=== PATIENT | female | born 1940 | race Caucasian/White ===

== ENCOUNTER 2018-04-02 12:55 | Outpatient (CLI) | payer MEDICARE, BC ==
--- NOTE | 2018-04-02 14:53 | XRAY Report ---
Procedure Date: 04/02/2018 Accession Number: [id number] / [id number] Procedure: XR - Chest 2 View X-Ray CPT Code: 17988 FULL RESULT: EXAM: CHEST RADIOGRAPHY EXAM DATE: 04/02/2018 02:13 PM. CLINICAL HISTORY: COUGH,GERD. COMPARISON: 09/12/2006. TECHNIQUE: 2 views. FINDINGS: Lungs/Pleura: No focal opacities evident. No pleural effusion. No pneumothorax. Normal volumes. Mediastinum: Heart size upper normal and unchanged. There is mild tortuosity in the descending thoracic aorta, unchanged. Other: Pedicle screws and longitudinal stabilization rods in the lumbar spine, incompletely visualized. No gaseous distention of the stomach. IMPRESSION: 1. Lungs are clear. 2. Size upper normal and unchanged. 3. Mild descending thoracic aortic tortuosity, unchanged. RADIA
== END 2018-04-02 12:56 | disposition home or self-care (01) ==
LOC: DI 12:55
PROVIDERS: ATTEND Registered Nurse
DX: R05 Cough (principal); K21.9 Gastro-esophageal reflux disease without esophagitis
CPT/HCPCS: 71046

== ENCOUNTER 2019-04-28 15:41 | Emergency (ER) | payer MEDICARE, BC ==
--- NOTE | 2019-04-28 18:04 | XRAY Report ---
Reason: hip pain after fall Procedure Date: 04/28/2019 Accession Number: [id number] / [id number] Procedure: XR - Hip w/Pelvis 2-3V LT CPT Code: FULL RESULT: EXAM: LEFT HIP RADIOGRAPHY EXAM DATE: 04/28/2019 05:09 PM. CLINICAL HISTORY: Hip pain after fall. COMPARISON: None. TECHNIQUE: 2 views. FINDINGS: Left total hip arthroplasty appears in anatomic alignment. No evidence for loosening. No dislocation. No evidence for acute fracture. Lumbosacral hardware. There appears to be right-sided pelvic calcification, could represent uterine fibroid calcification. Correlate clinically. IMPRESSION: 1. No acute findings are seen. See chronic findings as above. RADIA
--- NOTE | 2019-04-28 18:07 | ED Physician Documentation ---
PD HPI LOWER EXT INJURY - Stated complaint Stated Complaint: L HIP PAIN - Chief complaint Chief Complaint: Trauma Ch/Bk - History obtained from History obtained from: Patient, Family - History of Present Illness PD HPI LOW EXT INJURY LOCATION: Left, Hip Type of injury: Fall Where injury occurred: Home Timing - onset: Yesterday Timing - duration: Days (1) Timing - details: Abrupt onset, Still present Improved by: Rest, Ice, Immobilization Worsened by: Moving, Palpating Associated symptoms: No: Weakness, Numbness, Tingling, Swelling Contributing factors: Prior ortho surgery, Prosthetic joint. No: Anticoagulated Similar symptoms before: Has not had sx before Recently seen: Not recently seen - Additional information Additional information: Previously well 78-year-old female is visiting up in [place] yesterday when she walked quite a plant with her personal purse got caught on the plane and tripped her up. She fell onto her left side landing on her left hip. She is had this hip replaced previously with the prosthetic and she did not feel that her hip was broken she was able to bear some weight on this but has pain in the pelvis and groin associated with this. She was able to drive herself back from [place] today and she is come to the emergency department with a concern that she may have a fracture of the pelvic ring. She was not able to sleep last night secondary to pain. Review of Systems Constitutional: denies: Fever Respiratory: denies: Cough GI: denies: Vomiting PD PAST MEDICAL HISTORY - Present Medications Home Medications: Ambulatory Orders Medication Instructions Recorded Confirmed Carvedilol 6.25 mg PO BID 04/28/19 04/28/19 Celecoxib [CeleBREX] 100 mg PO DAILY 04/28/19 04/28/19 Hydrocodone/Acetaminophen 1 - 2 each PO Q6H PRN #14 tablet 04/28/19 [Hydrocodon-Acetaminophen 5-325] - Allergies Allergies/Adverse Reactions: Allergies Allergy/AdvReac Type Severity Reaction Status Date / Time No Known Drug Allergies Allergy Verified 04/28/19 16:46 PD ED PE NORMAL - Vitals Vital signs reviewed: Yes (hypertensive ) - General General: No acute distress, Well developed/nourished - HEENT HEENT: Atraumatic, PERRL, EOMI - Respiratory Respiratory: No respiratory distress - Derm Derm: Normal color, Warm and dry, No rash - Extremities Extremities: No deformity, No edema, Other (There is mild point tenderness to the superior pelvic brim on the left side. The hip is without tenderness to the trochanter and there is normal ROM to the hip joint. The distal n/v is intact. 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 No acute findings are seen. See chronic findings as above.), EMP read indepedently, See rad report PD MEDICAL DECISION MAKING - ED course Complexity details: considered differential, d/w patient, d/w family ED course: 78-year-old female with a fall onto her left side has pain into the pelvic girdle and she is able to bear weight. There is no obvious fracture on plain film evaluation. We will provide her with some pain medication for short term use. Departure - Departure Disposition: 01 Home, Self Care Clinical Impression: Contusion of left hip Qualifiers: Encounter type: initial encounter Qualified Code(s): S70.02XA - Contusion of left hip, initial encounter Condition: Stable Instructions: ED Contusion Hip Follow-Up: Dasha Moyer, HEAD BOOKKEEPER [Primary Care Provider] - Prescriptions: Hydrocodone/Acetaminophen [Hydrocodon-Acetaminophen 5-325] 1 - 2 each PO Q6H PRN #14 tablet PRN Reason: pain
[2019-04-28 18:25] VITALS: BP 165/77
== END 2019-04-28 18:24 | disposition home or self-care (01) ==
LOC: ED 15:41
DX: S70.02XA Contusion of left hip, initial encounter (principal); R10.2 Pelvic and perineal pain; W01.0XXA Fall on same level from slipping, tripping and stumbling without subsequent striking against object, initial encounter; Y93.01 Activity, walking, marching and hiking; Z96.642 Presence of left artificial hip joint
CPT/HCPCS: 99283; 99284

== ENCOUNTER 2019-09-09 14:10 | Outpatient (CLI) | payer MEDICARE, BC ==
--- NOTE | 2019-09-10 08:26 | XRAY Report ---
Reason: COUGH, DYSPHAGIA Procedure Date: 09/09/2019 Accession Number: [id number] / [id number] Procedure: XR - Chest 2 View X-Ray CPT Code: 34957 Final Report FULL RESULT: EXAM: CHEST RADIOGRAPHY 2 VIEWS EXAM DATE: 09/09/2019. CLINICAL HISTORY: Calm. Dysphagia. COMPARISON: PA and lateral chest on 04/02/2018. TECHNIQUE: PA and lateral views. FINDINGS: Lungs/Pleura: Normal vasculature. The lungs are clear. No pleural fluid or pneumothorax. Mediastinum: Heart size is normal. Aortic tortuosity and atherosclerosis are unchanged. Otherwise normal mediastinal contours. Bones: Degenerative changes of the spine. Partially visualized is a lumbar fusion. IMPRESSION: Chronic findings are unchanged from 03/23/2018. No acute abnormality. RADIA
== END 2019-09-09 14:11 | disposition home or self-care (01) ==
LOC: DI 14:10
PROVIDERS: ATTEND Nurse Practitioner Family
DX: R05 Cough (principal); R13.10 Dysphagia, unspecified
CPT/HCPCS: 71046

== ENCOUNTER 2019-09-22 12:16 | Outpatient (CLI) | payer MEDICARE, BC ==
--- NOTE | 2019-09-22 14:46 | XRAY Report ---
Reason: COUGH, DYSPHAGIA Procedure Date: 09/22/2019 Accession Number: [id number] / [id number] Procedure: FL - Modified Barium Swallow W/SP CPT Code: Final Report FULL RESULT: EXAM: MODIFIED BARIUM SWALLOW EXAM DATE: 09/22/2019 12:48 PM. CLINICAL HISTORY: COUGH, DYSPHAGIA. COMPARISON: None. TECHNIQUE: Under the direction of speech pathology, patient swallowed various consistencies of barium under lateral fluoroscopic observation of the neck. Fluoroscopy Time: 1 minute 11 seconds. Number of Images: 114. FINDINGS: Swallowing Mechanism: Normal oral phase and swallowing reflex. Airway Protection: Normal epiglottic motion. No episodes of tracheal penetration or aspiration with all consistencies of barium. Pharynx: No significant vallecular or piriform sinus contrast pooling. Other: A cricopharyngeal bar is present without obstruction. IMPRESSION: 1. No aspiration identified. 2. Nonobstructing cricopharyngeal bar. RADIA
== END 2019-09-22 12:17 | disposition home or self-care (01) ==
LOC: DI 12:16
PROVIDERS: ATTEND Nurse Practitioner Family
DX: R05 Cough (principal); R13.10 Dysphagia, unspecified
CPT/HCPCS: 74230

== ENCOUNTER 2019-10-10 09:49 | Emergency (ER) | payer MEDICARE, BC ==
[2019-10-10 10:25] LABS: BILIRUBIN,URINE NEGATIVE (NEGATIVE); CLARITY,URINE CLEAR (CLEAR); GLUCOSE, URINE (UA) NEGATIVE (NEGATIVE); KETONES,URINE (UA) 15 mg/dL (NEGATIVE); LEUKOCYTE ESTERASE, URINE NEGATIVE (NEGATIVE); NITRITE,URINE NEGATIVE (NEGATIVE); OCCULT BLOOD,URINE TRACE-INTA (NEGATIVE); PROTEIN,URINE 30 mg/dL (NEGATIVE); UROBILINOGEN,URINE 1 (NORMAL) E.U./dL (NORMAL)
[2019-10-10 10:36] LABS: RBC,URINE 0-5 /HPF (0-5); SQUAMOUS EPITHELIAL CELL,UR FEW Squamous (<= Few); WBC CLUMPS,URINE PRESENT
[2019-10-10 10:37] LABS: BACTERIA,URINE Rare /HPF (None Seen)
[2019-10-10 10:47] LABS: BASOPHILS % (AUTO) 0.6 %; EOSINOPHILS # (AUTO) 0.1 10^3/uL (0.0-0.7); EOSINOPHILS % (AUTO) 1.5 %; HGB - HEMOGLOBIN 11.6 g/dL (12.0-16.0); LYMPHOCYTES % (AUTO) 14.5 %; MEAN CORPUSCULAR HEMOGLOBIN 29.4 pg (27.0-31.0); MEAN CORPUSCULAR VOLUME 89.1 fL (81.0-99.0); MEAN PLATELET VOLUME 9.4 fL (7.9-10.8); MONOCYTES # (AUTO) 0.8 10^3/uL (0.0-1.0); MONOCYTES % (AUTO) 11.5 %; NEUTROPHILS # (AUTO) 5.2 10^3/uL (1.5-6.6); NEUTROPHILS % (AUTO) 71.6 %; PLT - PLATELET COUNT 186 10^3/uL (130-450); RED BLOOD COUNT 3.95 10^6/uL (4.20-5.40); RED CELL DISTRIBUTION WIDTH 14.6 % (12.0-15.0); WHITE BLOOD COUNT 7.2 x10^3/uL (4.8-10.8)
[2019-10-10 10:59] LABS: ALBUMIN 3.5 g/dL (3.2-5.5); ALBUMIN/GLOBULIN RATIO 0.9 (1.0-2.2); BILIRUBIN,TOTAL 0.6 mg/dL (0.2-1.0); CALCIUM 8.7 mg/dL (8.5-10.3); CREATININE 0.9 mg/dL (0.4-1.0); TOTAL PROTEIN 7.3 g/dL (6.7-8.2)
--- NOTE | 2019-10-10 13:02 | ED Physician Documentation ---
PD HPI FEMALE - Stated complaint Stated Complaint: FEMALE - Chief complaint Chief Complaint: Abd Pain - History obtained from History obtained from: Patient PD PAST MEDICAL HISTORY - Present Medications Home Medications: Ambulatory Orders Medication Instructions Recorded Confirmed Celecoxib [CeleBREX] 100 mg PO DAILY 04/28/19 04/28/19 Hydrocodone/Acetaminophen 1 - 2 each PO Q6H PRN #14 tablet 04/28/19 [Hydrocodon-Acetaminophen 5-325] carvediloL [Carvedilol] 6.25 mg PO BID 04/28/19 04/28/19 - Allergies Allergies/Adverse Reactions: Allergies Allergy/AdvReac Type Severity Reaction Status Date / Time No Known Drug Allergies Allergy Verified 10/10/19 09:53 - Social History Does the pt smoke?: No Smoking Status: Never smoker Results - Vitals Vitals: Vital Signs - 24 hr 10/10/19 09:54 Temperature 36.8 C Heart Rate 90 Respiratory 14 Rate Blood Pressure 155/92 H O2 Saturation 97 Oxygen O2 Source Room air - Labs Labs: Laboratory Tests 10/10/19 10/10/19 10/10/19 10:10 10:43 10:43 WBC 7.2 RBC 3.95 L Hgb 11.6 L Hct 35.2 L MCV 89.1 MCH 29.4 MCHC 33.0 RDW 14.6 Plt Count 186 MPV 9.4 Neut # (Auto) 5.2 Lymph # (Auto) 1.0 L [place] # (Auto) 0.8 Eos # (Auto) 0.1 Baso # (Auto) 0.0 Absolute Nucleated RBC 0.00 Nucleated RBC % 0.0 Sodium 131 L Potassium 3.8 Chloride 99 L Carbon Dioxide 21 Anion Gap 11.0 BUN 16 Creatinine 0.9 Estimated GFR (MDRD) 60 L Glucose 115 H Calcium 8.7 Total Bilirubin 0.6 AST 24 ALT 19 Alkaline Phosphatase 58 Total Protein 7.3 Albumin 3.5 Globulin 3.8 Albumin/Globulin Ratio 0.9 L Lipase 37 Urine Color YELLOW Urine Clarity CLEAR Urine pH 6.0 Ur Specific [place] >=1.030 H Urine Protein 30 H Urine Glucose (UA) NEGATIVE Urine Ketones 15 H Urine Occult Blood TRACE-INTA Urine Nitrite NEGATIVE Urine Bilirubin NEGATIVE Urine Urobilinogen 1 (NORMAL) Ur Leukocyte Esterase NEGATIVE Urine RBC 0-5 Urine WBC 6-10 H Urine WBC Clumps PRESENT Ur Squamous Epith Cells FEW Squamous Urine Bacteria Rare Ur Microscopic Review INDICATED Urine Culture Comments INDICATED
[2019-10-10 13:16] VITALS: BP 148/86
--- NOTE | 2019-10-10 13:18 | ED Physician Documentation ---
History of Present Illness - Stated complaint Stated Complaint: FEMALE - Chief complaint Chief Complaint: Abd Pain - History obtained from History obtained from: Patient - History of Present Illness Pain level max: 3 Pain level now: 2 - Additonal information Additional information: 79-year-old female with intermittent urinary symptoms for the past 2 weeks. She states she has had frequency and dysuria. The symptoms would last a few days and then go away. Started having fevers of 103 2 days ago. Saw her PCP yesterday and started on ciprofloxacin. She had vomiting that night as well. Has taken 3 doses of the ciprofloxacin and states that she had a temperature of 100.1 this morning so she came in for evaluation. No back pain. No further vomiting. Nothing makes it better or worse. Review of Systems Constitutional: denies: Fever, Chills Respiratory: denies: Cough GI: denies: Nausea, Vomiting, Diarrhea Skin: denies: Rash Musculoskeletal: denies: Neck pain, Back pain Neurologic: denies: Headache PD PAST MEDICAL HISTORY - Past Medical History Past Medical History: Yes Cardiovascular: Hypertension - Past Surgical History Past Surgical History: No - Present Medications Home Medications: Ambulatory Orders Medication Instructions Recorded Confirmed Celecoxib [CeleBREX] 100 mg PO DAILY 04/28/19 04/28/19 Hydrocodone/Acetaminophen 1 - 2 each PO Q6H PRN #14 tablet 04/28/19 [Hydrocodon-Acetaminophen 5-325] carvediloL [Carvedilol] 6.25 mg PO BID 04/28/19 04/28/19 Cefdinir 300 mg PO BID #20 capsule 10/10/19 - Allergies Allergies/Adverse Reactions: Allergies Allergy/AdvReac Type Severity Reaction Status Date / Time No Known Drug Allergies Allergy Verified 10/10/19 09:53 - Social History Does the pt smoke?: No Smoking Status: Never smoker - Family History Family history: reports: Non contributory PD ED PE NORMAL - Vitals Vital signs reviewed: Yes - General General: Alert and oriented X 3, No acute distress, Well developed/nourished - HEENT HEENT: Moist mucous membranes - Neck Neck: Supple, no meningeal sign - Cardiac Cardiac: RRR - Respiratory Respiratory: No respiratory distress, Clear bilaterally - Abdomen Abdomen: Soft, Non tender, Non distended - Back Back: No CVA TTP - Derm Derm: Warm and dry - Neuro Neuro: Alert and oriented X 3 - Psych Psych: Normal mood, Normal affect Results - Vitals Vitals: Vital Signs - 24 hr 10/10/19 09:54 Temperature 36.8 C Heart Rate 90 Respiratory 14 Rate Blood Pressure 155/92 H O2 Saturation 97 Oxygen O2 Source Room air - Labs Labs: Laboratory Tests 10/10/19 10/10/19 10/10/19 10:10 10:43 10:43 WBC 7.2 RBC 3.95 L Hgb 11.6 L Hct 35.2 L MCV 89.1 MCH 29.4 MCHC 33.0 RDW 14.6 Plt Count 186 MPV 9.4 Neut # (Auto) 5.2 Lymph # (Auto) 1.0 L [place] # (Auto) 0.8 Eos # (Auto) 0.1 Baso # (Auto) 0.0 Absolute Nucleated RBC 0.00 Nucleated RBC % 0.0 Sodium 131 L Potassium 3.8 Chloride 99 L Carbon Dioxide 21 Anion Gap 11.0 BUN 16 Creatinine 0.9 Estimated GFR (MDRD) 60 L Glucose 115 H Calcium 8.7 Total Bilirubin 0.6 AST 24 ALT 19 Alkaline Phosphatase 58 Total Protein 7.3 Albumin 3.5 Globulin 3.8 Albumin/Globulin Ratio 0.9 L Lipase 37 Urine Color YELLOW Urine Clarity CLEAR Urine pH 6.0 Ur Specific [place] >=1.030 H Urine Protein 30 H Urine Glucose (UA) NEGATIVE Urine Ketones 15 H Urine Occult Blood TRACE-INTA Urine Nitrite NEGATIVE Urine Bilirubin NEGATIVE Urine Urobilinogen 1 (NORMAL) Ur Leukocyte Esterase NEGATIVE Urine RBC 0-5 Urine WBC 6-10 H Urine WBC Clumps PRESENT Ur Squamous Epith Cells FEW Squamous Urine Bacteria Rare Ur Microscopic Review INDICATED Urine Culture Comments INDICATED PD MEDICAL DECISION MAKING - ED course Complexity details: reviewed results, re-evaluated patient, considered differential, d/w patient ED course: Patient is well-appearing, nontoxic. Afebrile. Tolerating p.o. without difficulty. No signs of sepsis. Unclear why she was placed on ciprofloxacin given the multiple black box warnings on this medication. Patient does not have medication allergies.. We will transition her to cefdinir instead. Patient counseled regarding signs and symptoms for which I believe and urgent re- evaluation would be necessary. Patient with good understanding of and agreement to plan and is comfortable going home at this time This document was made in part using voice recognition software. While efforts are made to proofread this document, sound alike and grammatical errors may occur. Departure - Departure Disposition: 01 Home, Self Care Clinical Impression: Urinary tract infection Qualifiers: Urinary tract infection type: acute cystitis Hematuria presence: without he maturia Qualified Code(s): N30.00 - Acute cystitis without hematuria Condition: Good Instructions: ED UTI Cystitis Female Follow-Up: GAEL SIMON ARNP [Primary Care Provider] - Within 1 week Prescriptions: Cefdinir 300 mg PO BID #20 capsule Comments: Stop the ciprofloxacin and start the cefdinir instead. Take all antibiotics until gone. Return if you worsen. You should be feeling better in the next 24 to 48 hours. Return especially for vomiting, worsening pain or high fevers.
== END 2019-10-10 13:27 | disposition home or self-care (01) ==
LOC: ED 09:49
DX: N30.00 Acute cystitis without hematuria (principal); I10 Essential (primary) hypertension
CPT/HCPCS: 36415; 80053; 81001; 81003; 83690; 85025; 87086; 99283; 99284

== ENCOUNTER 2020-06-14 11:33 | Emergency (ER) | payer MEDICARE, BC ==
[2020-06-14 11:43] VITALS: BP 175/100
[2020-06-14] MEDS ORDERED: PROPARACAINE 0.5% OPHTH DROPS 15 ML EACHEYE STA (12:19)
--- NOTE | 2020-06-14 12:36 | ED Physician Documentation ---
PD HPI OPHTHO - Stated complaint Stated Complaint: L EYE PX - Chief complaint Chief Complaint: Heent - History obtained from History obtained from: Patient - History of Present Illness Timing - onset: Today (This is a very pleasant woman with history of dry eyes who this morning at 11 AM accidentally used "Gekks" cleaning solution instead of her usual 16 eyedrops and has severe pain in the left eye without visual deficit.) Review of Systems Constitutional: reports: Reviewed and negative Eyes: reports: Reviewed and negative Ears: reports: Reviewed and negative Nose: reports: Reviewed and negative Throat: reports: Reviewed and negative Cardiac: reports: Reviewed and negative PD PAST MEDICAL HISTORY - Past Medical History Cardiovascular: Hypertension Respiratory: None Neuro: None Endocrine/Autoimmune: None GI: GERD 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 : None HEENT: None Psych: None Musculoskeletal: Osteoarthritis Derm: None - Past Surgical History Past Surgical History: No /RUGBY LEAGUE FOOTBALLER: Mastectomy - Present Medications Home Medications: Ambulatory Orders Medication Instructions Recorded Confirmed Celecoxib [CeleBREX] 100 mg PO DAILY 04/28/19 04/28/19 Hydrocodone/Acetaminophen 1 - 2 each PO Q6H PRN #14 tablet 04/28/19 [Hydrocodon-Acetaminophen 5-325] carvediloL [Carvedilol] 6.25 mg PO BID 04/28/19 04/28/19 Cefdinir 300 mg PO BID #20 capsule 10/10/19 - Allergies Allergies/Adverse Reactions: Allergies Allergy/AdvReac Type Severity Reaction Status Date / Time No Known Drug Allergies Allergy Verified 06/14/20 11:43 - Social History Does the pt smoke?: No Smoking Status: Never smoker Does the pt drink ETOH?: Yes Does the pt have substance abuse?: No PD ED PE NORMAL - Vitals Vital signs reviewed: Yes - General General: Alert and oriented X 3, No acute distress - HEENT HEENT: PERRL, EOMI, Other (She has severe conjunctivitis of the left eye, but the cornea seems unscathed. No fluorescein uptake. pH right around 7.) - Neck Neck: Supple, no meningeal sign, No bony TTP - Neuro Neuro: Alert and oriented X 3, Normal speech Results - Vitals Vitals: Vital Signs - 24 hr 06/14/20 11:38 Temperature 36.8 C Heart Rate 85 Respiratory 20 Rate Blood Pressure 175/100 H O2 Saturation 98 Oxygen O2 Source Room air PD MEDICAL DECISION MAKING - ED course ED course: She was pain-free with normal vision after the administration of proparacaine. I called poison control and they found that the solution was alcohol based, not likely to cause severe injury to the eye. She had already irrigated at home, we irrigated again here. I gave her a 1:9 dilution of proparacaine to use for just today. Departure - Departure Disposition: Home, Self Care Clinical Impression: Chemical insult, eye Qualifiers: Encounter type: initial encounter Laterality: left Qualified Code(s): T26.92XA - Corrosion of left eye and adnexa, part unspecified, initial encounter Condition: Good Record reviewed to determine appropriate education?: Yes Instructions: ED Chemical Conjunctivitis Comments: You should be mostly better tomorrow, 100% by Sunday, if not better by Sunday follow-up with your eye doctor. Return if worse.
== END 2020-06-14 12:41 | disposition home or self-care (01) ==
LOC: ED 11:33
DX: T26.92XA Corrosion of left eye and adnexa, part unspecified, initial encounter (principal); T51.91XA Toxic effect of unspecified alcohol, accidental (unintentional), initial encounter; I10 Essential (primary) hypertension
CPT/HCPCS: 99282; 99283; J3490

== ENCOUNTER 2021-04-01 12:55 | Outpatient (CLI) | payer MEDICARE, BC ==
[2021-04-01 20:05] LABS: BASOPHILS # (AUTO) 0.1 10^3/uL (0.0-0.1); EOSINOPHILS # (AUTO) 0.1 10^3/uL (0.0-0.7); EOSINOPHILS % (AUTO) 2.5 %; HCT - HEMATOCRIT 36.7 % (37.0-47.0); HGB - HEMOGLOBIN 11.9 g/dL (12.0-16.0); LYMPHOCYTES # (AUTO) 1.7 10^3/uL (1.5-3.5); LYMPHOCYTES % (AUTO) 32.2 %; MEAN CORPUSCULAR HEMOGLOBIN 30.5 pg (27.0-31.0); MEAN CORPUSCULAR HGB CONC 32.4 g/dL (32.0-36.0); MEAN CORPUSCULAR VOLUME 94.1 fL (81.0-99.0); MEAN PLATELET VOLUME 10.4 fL (7.9-10.8); MONOCYTES # (AUTO) 0.5 10^3/uL (0.0-1.0); MONOCYTES % (AUTO) 9.3 %; NEUTROPHILS # (AUTO) 2.8 10^3/uL (1.5-6.6); NEUTROPHILS % (AUTO) 54.8 %; PLT - PLATELET COUNT 213 10^3/uL (130-450); RED CELL DISTRIBUTION WIDTH 15.3 % (12.0-15.0); WHITE BLOOD COUNT 5.2 x10^3/uL (4.8-10.8)
[2021-04-01 20:19] LABS: ALBUMIN 4.1 g/dL (3.2-5.5); ALBUMIN/GLOBULIN RATIO 1.5 (1.0-2.2); BILIRUBIN,TOTAL 0.7 mg/dL (0.2-1.0); CALCIUM 9.2 mg/dL (8.5-10.3); CREATININE 0.9 mg/dL (0.4-1.0); POTASSIUM 4.1 mmol/L (3.5-5.0); TOTAL PROTEIN 6.8 g/dL (6.7-8.2)
== END 2021-04-01 12:56 | disposition home or self-care (01) ==
LOC: LAB.S 12:55
PROVIDERS: ATTEND Registered Nurse
DX: Z01.812 Encounter for preprocedural laboratory examination (principal)
CPT/HCPCS: 36415; 80053; 85025

== ENCOUNTER 2021-04-04 15:21 | Outpatient (CLI) | payer MEDICARE, BC | END 2021-04-04 15:22 | disposition home or self-care (01) | LOC: RT 15:21 | PROVIDERS: ATTEND Registered Nurse | DX: Z01.810 Encounter for preprocedural cardiovascular examination (principal) | CPT/HCPCS: 93005 ==

== ENCOUNTER 2021-06-01 07:09 | Outpatient (CLI) | payer MEDICARE, BC ==
--- NOTE | 2021-06-01 09:17 | Ultrasound Report ---
PROCEDURE: Abdomen Limited INDICATIONS: LIVER CYST TECHNIQUE: Real-time focused scanning was performed of the abdomen, with image documentation. COMPARISON: None available. Reference is made to the CT chest May 20, 2021. FINDINGS: AORTA: The visualized abdominal aorta is normal. IVC: The visualized IVC is normal. LIVER: The liver is normal in size and contour. No significant abnormality. Multiple hypoechoic les ions are seen in the liver, most consistent with cysts. The largest lesion measures 5.7 x 3.9 x 5 cm and contains thin septations. The portal vein is patent. PANCREAS: The visualized portions of the pancreas are normal. Gallbladder and biliary tree: The common bile that measures 3 mm. No gallbladder wall thickening, p ericholecystic fluid, or shadowing gallstones. RIGHT KIDNEY: Normal in appearance with no hydronephrosis. Measuring 9.6 cm in length. The renal co rtex thickness measures 9.6 millimeters. No ascites. IMPRESSION: 1.No acute right upper quadrant sonographic abnormality. 2.Hypoechoic lesion in the right hepatic lobe within septation, favored to represent a mildly complex cyst. Differential considerations include biliary hamartomas. Reviewed by: Masoud Cabrera MD on 06/01/2021 9:16 AM PDT Approved by: Masoud Cabrera MD on 06/01/2021 9:16 AM PDT Station ID: [id number]
== END 2021-06-01 07:10 | disposition home or self-care (01) ==
LOC: DI 07:09
PROVIDERS: ATTEND Nurse Practitioner Family
DX: R93.2 Abnormal findings on diagnostic imaging of liver and biliary tract (principal)

== ENCOUNTER 2022-09-12 07:33 | Outpatient (CLI) | payer MEDICARE, BC ==
--- NOTE | 2022-09-12 12:00 | DEXA Report ---
PROCEDURE: Dexa Spine and/or Hip INDICATIONS: OSTEOPENIA TECHNIQUE: Dual energy x-ray absorptiometry (DXA) was performed on a [employer] System. Regions measur ed are the AP Spine, femoral neck, and if needed forearm. COMPARISON: None. FINDINGS: Lumbar Spine: Bone Mineral Density 1.171 g/cm/cm,T score 0, normal Right Femoral Neck: Bone Mineral Density 0.811 g/cm/cm, T score -1.6, mild to moderate osteopenia Right Hip: Bone Mineral Density 0.886 g/cm/cm,T score -1.0, normal (T score greater or equal to -1.0: NORMAL) (T score from -1.1 to -2.4: OSTEOPENIA) (T score less than or equal to -2.5 to: OSTEOPOROSIS) Impression: Mild to moderate osteopenia in the right femoral neck. Patients with diagnosis of osteoporosis or osteopenia should have regular bone mineral density assess ment. For those eligible for Medicare, routine testing is allowed once every 2 years. Testing frequ ency can be increased for patients who have rapidly progressing disease or for those who are receivin g medical therapy to restore bone mass. Reviewed by: Rebekah Jovel MD on 09/12/2022 11:58 AM PST Approved by: Rebekah Jovel MD on 09/12/2022 11:58 AM PST Station ID: [id number]
--- NOTE | 2022-09-12 14:16 | Ultrasound Report ---
PROCEDURE: Abdomen Limited INDICATIONS: LIVER CYST TECHNIQUE: Real-time scanning was performed of the abdominal and retroperitoneal organs, with image documentatio n. COMPARISON: Abdomen ultrasound 06/01/2021 FINDINGS: Liver: Liver is normal in size. There are multiple foci of decreased echogenicity. The right-sided f oci measure 9 x 48 x 71 mm compared to 57 x 39 x 50 mm, 29 x 25 x 36 mm compared to 22 x 21 x 24 mm. There is a new focus measuring 14 x 10 x 11 mm previously not visualized. There is a left lobe focus measuring 8 x 6 x 7 mm compared to 5 x 4 x 5 mm. Gallbladder: No stones. Wall thickness is normal padmini suring 1.2 mm. Biliary ducts: Intrahepatic bile ducts are non-dilated. Extrahepatic bile duct caliber measures 5.3 mm. Normal is 6-7 mm or less in diameter, or 10 mm or less post-cholecystectomy. Pancreas: Visualized portions of the pancreas are sonographically normal. Kidneys: Right kidney measures 9.5 cm long. No hydronephrosis or nephrolithiasis. No solid masses. IMPRESSION: Multiple hepatic cysts demonstrating mild interval increase is in size compared to prior exam. Contin ued interval follow-up is recommended. Reviewed by: Rebekah Jovel MD on 09/12/2022 2:14 PM PST Approved by: Rebekah Jovel MD on 09/12/2022 2:14 PM PST Station ID: [id number]
== END 2022-09-12 07:34 | disposition home or self-care (01) ==
LOC: DI 07:33
PROVIDERS: ATTEND Registered Nurse
DX: K76.89 Other specified diseases of liver (principal); M85.88 Other specified disorders of bone density and structure, other site